=== PATIENT | male | born 1990 | race American Indian/Alaskan Native ===

== ENCOUNTER 2019-10-09 11:39 | Emergency (ER) | payer BC ==
[2019-10-09 12:02] VITALS: BP 125/73
[2019-10-09] MEDS ORDERED: LIDOCAINE (1%) 10 MG/1 ML VIAL 20 ML MDV INFILTRATI ONE (13:09)
[2019-10-09] MEDS ORDERED: TETANUS,DIPH,PERTUSS(ACELL) VACCINE 0.5 ML SYRINGE IM ONE (13:09)
--- NOTE | 2019-10-09 13:12 | Emergency Department Report ---
ED General Adult HPI - General Chief complaint: Medical Clearance Stated complaint: LIP CUT Time Seen by Provider: 10/09/19 13:07 Source: patient Mode of arrival: Ambulatory Limitations: No Limitations - History of Present Illness Initial comments: Patient complains of lower lip laceration today. He states he was elbowed in the mouth while playing basketball. Patient is unsure of his last tetanus vaccination. He denies any headache, loss of consciousness, dizziness, nausea/vomiting. MD Complaint: lip laceration -: Sudden Location: mouth Severity scale (0 -10): 2 Quality: aching Consistency: constant Worsens with: movement - Related Data Previous Rx's Medication Instructions Recorded Last Taken Type Ibuprofen [Motrin 800 MG tab] 800 mg PO Q8HR PRN #21 tablet 10/09/19 Unknown Rx traMADol [Ultram 50 MG tab] 50 mg PO Q8H PRN #6 tablet 10/09/19 Unknown Rx Allergies Allergy/AdvReac Type Severity Reaction Status Date / Time No Known Allergies Allergy Unverified 10/09/19 11:58 ED Review of Systems ROS: Stated complaint: LIP CUT Other details as noted in HPI Comment: All other systems reviewed and negative ED Past Medical Hx - Past Medical History Previous Medical History?: No - Surgical History Past Surgical History?: Yes Additional Surgical History: left ankle - Social History Smoking Status: Current Every Day Smoker Substance Use Type: None - Medications Home Medications: Home Medications Medication Instructions Recorded Confirmed Last Taken Type Ibuprofen [Motrin 800 MG tab] 800 mg PO Q8HR PRN #21 tablet 10/09/19 Unknown Rx traMADol [Ultram 50 MG tab] 50 mg PO Q8H PRN #6 tablet 10/09/19 Unknown Rx ED Physical Exam - General Limitations: No Limitations General appearance: alert, in no apparent distress - Head Head exam: Present: other (laceration noted to lower lip and inner lower lip mucosa (2 lacerations in total)) - Eye Eye exam: Present: normal appearance, PERRL - ENT ENT exam: Present: normal orophraynx - Neck Neck exam: Present: full ROM. Absent: tenderness - Respiratory Respiratory exam: Absent: respiratory distress - Cardiovascular Cardiovascular Exam: Present: regular rate - Rectal Rectal exam: Present: deferred - Neurological Exam Neurological exam: Present: alert, oriented X3, CN II-XII intact, normal gait - Psychiatric Psychiatric exam: Present: normal affect, normal mood - Skin Skin exam: Present: warm, dry, normal color. Absent: rash ED Course Vital Signs 10/09/19 12:01 Temperature 98.4 F Pulse Rate 68 Respiratory 14 Rate Blood Pressure 125/73 [Left] O2 Sat by Pulse 100 Oximetry - Laceration /Wound Repair Face Wound Location: mouth Wound Length (cm): 3 Wound's Depth, Shape: linear Wound Explored: no foreign body removed Irrigated w/ Saline (ccs): 20 Betadine Prep?: Yes Anesthesia: 1% Lidocaine Volume Anesthetic (ccs): 8 Wound Repaired With: sutures Number of Sutures: 16 (6 and 10, continuous ) Deep Layer Suture Size/Type: 4:0, gut Sterile Dressing Applied?: No Progress: Patient tolerated procedure well without any immediate complications ED Medical Decision Making - Medical Decision Making Chin here for laceration of lower lip. Lip repair using absorbable sutures. Patient tolerated procedure well. Discussed signs and symptoms of infection, wound care, and strict return precautions and great detail with the patient who states understanding. Recommend follow-up with primary care provider as needed. Critical care attestation.: If time is entered above; I have spent that time in minutes in the direct care of this critically ill patient, excluding procedure time. ED Disposition Clinical Impression: Lip laceration Qualifiers: Encounter type: initial encounter Qualified Code(s): S01.511A - Laceration without foreign body of lip, initial encounter Disposition: TO HOME OR SELFCARE Is pt being admited?: No Condition: Stable Instructions: Laceration (ED), Absorbable Suture Care (ED) Additional Instructions: Please return to the emergency department if he develops any signs/symptoms of infection as discussed or if you have any other concerns Prescriptions: Ibuprofen [Motrin 800 MG tab] 800 mg PO Q8HR PRN #21 tablet PRN Reason: Pain, Moderate (4-6) traMADol [Ultram 50 MG tab] 50 mg PO Q8H PRN #6 tablet PRN Reason: Pain , Severe (7-10) Referrals: PRIMARY CARE, [Referring] - 3-5 Days
== END 2019-10-09 15:12 | disposition home or self-care (01) ==
LOC: ED 11:39
DX: S01.511A Laceration without foreign body of lip, initial encounter (principal); F17.200 Nicotine dependence, unspecified, uncomplicated; Z79.899 Other long term (current) drug therapy; Z79.1 Long term (current) use of non-steroidal anti-inflammatories (NSAID); W21.05XA Struck by basketball, initial encounter; Y93.67 Activity, basketball; Y92.89 Other specified places as the place of occurrence of the external cause; Y99.8 Other external cause status
CPT/HCPCS: 90471; 90715